=== PATIENT | female | born 1960 | race Caucasian/White ===

== ENCOUNTER → 2023-07-03 14:56 | Outpatient (REF) | payer BC, SELFPAY | LOC: CLAB 14:56 | PROVIDERS: ATTENDING PHYSICIAN Nurse Practitioner Family | DX: R87.810 Cervical high risk human papillomavirus (HPV) DNA test positive (principal) | CPT/HCPCS: 88305; 88342 ==

== ENCOUNTER 2023-09-12 06:09 | Day surgery (SDC) | payer BC, SELFPAY ==
[2023-09-01 06:44] VITALS: BMI 22.7
[2023-09-01 09:21] LABS: % Basophils 1.3 % (0-2); % Eosinophils 2.5 % (0-6); % Immature Granulocytes 0.2 % (0-0.5); % Lymphocytes 35.8 % (20.5-51.1); % Monocytes 11.8 % (1.7-9.3); % Neutrophils 48.4 % (42.2-75.2); Absolute Basophils 0.1 10^3/uL (0-0.2); Absolute Eosinophils 0.1 10^3/uL (0-0.7); Absolute Lymphocytes 1.9 10^3/uL (1.2-3.4); Absolute Monocytes 0.6 10^3/uL (0.1-0.6); Absolute Neutrophils 2.5 10^3/uL (1.4-6.5); Hemoglobin 13.6 g/dL (12.0-16.0); Mean Corp Hgb Conc. 34.9 g/dL (33.0-37.0); Mean Corpuscular Hgb 30.5 pg (27.0-31.0); Mean Corpuscular Volume 87.4 fL (81.0-99.0); Mean Platelet Volume 9.5 fL (7.4-10.4); Nucleated Red Blood Cells % 0 %; Platelet Count 295 10^3/uL (130-400); Red Blood Cell Count 4.46 10^6/uL (4.20-5.40); Red Cell Dist. Width 12.6 % (11.5-14.5); White Blood Cell Count 5.2 10^3/uL (4.8-10.8)
[2023-09-01 09:57] LABS: Blood Urea Nitrogen 9 mg/dl (7-17); Calcium 9.7 mg/dl (8.4-10.2); Carbon Dioxide 24 mmol/L (22-30); Chloride 102 mmol/L (98-107); Estimated Creatinine Clearance 74 ml/min; Glucose 84 mg/dl (70-99); Potassium 4.4 mmol/L (3.5-5.1); Sodium 134 mmol/L (135-145); eGFR > 60.00
[2023-09-12] VITALS (8 sets, daily range): BP systolic 117–164; BP diastolic 62–93; BMI 22.7
[2023-09-12] MEDS: NORMOSOL-R 1000 IV (08:06)
== END 2023-09-12 10:34 | disposition home or self-care (01) ==
LOC: SDS 06:09
PROVIDERS: ATTENDING PHYSICIAN Obstetrics & Gynecology; FAMILY PHYSICIAN Family Medicine
DX: D06.0 Carcinoma in situ of endocervix (principal)
CPT/HCPCS: 57522; 88305; 88307; 36415; 80048; 85025; 86850; 86900; 86901; 93005

== ENCOUNTER → 2023-12-10 07:03 | Outpatient (REF) | payer BC, SELFPAY ==
[2023-12-10 08:06] LABS: Hematocrit 37.2 % (37.0-47.0); Hemoglobin 12.9 g/dL (12.0-16.0); Mean Corp Hgb Conc. 34.7 g/dL (33.0-37.0); Mean Corpuscular Hgb 31.1 pg (27.0-31.0); Mean Corpuscular Volume 89.6 fL (81.0-99.0); Mean Platelet Volume 9.3 fL (7.4-10.4); Platelet Count 283 10^3/uL (130-400); Red Blood Cell Count 4.15 10^6/uL (4.20-5.40); Red Cell Dist. Width 12.7 % (11.5-14.5); White Blood Cell Count 4.8 10^3/uL (4.8-10.8)
[2023-12-10 08:38] LABS: ALT (SGPT) 26 U/L (0-35); AST (SGOT) 35 U/L (14-36); Albumin 4.7 g/dl (3.5-5.0); Alkaline Phosphatase 59 U/L (38-126); Blood Urea Nitrogen 7 mg/dl (7-17); Calcium 9.8 mg/dl (8.4-10.2); Carbon Dioxide 24 mmol/L (22-30); Chloride 98 mmol/L (98-107); Glucose 89 mg/dl (70-99); Potassium 4.4 mmol/L (3.5-5.1); Sodium 136 mmol/L (135-145); Total Bilirubin 0.5 mg/dl (0.2-1.3); Total Cholesterol 314 mg/dl (50-199); Total Protein 7.1 g/dl (6.3-8.2); Triglyceride 94 mg/dl (10-149); Very Low Density Lipoprotein 18 mg/dl (0-30); eGFR > 60.00
[2023-12-10 08:58] LABS: HDL Cholesterol 117 mg/dl; LDL Cholesterol, Calculated 179 mg/dl
[2023-12-10 10:28] LABS: TSH 0.68 uIU/ml (0.47-4.68)
== END ==
LOC: REG 07:03
PROVIDERS: ATTENDING PHYSICIAN Family Medicine
DX: Z00.01 Encounter for general adult medical examination with abnormal findings (principal); E78.2 Mixed hyperlipidemia
CPT/HCPCS: 36415; 80053; 80061; 84443; 85027

== ENCOUNTER → 2024-03-19 09:03 | Outpatient (REF) | payer BC, SELFPAY ==
[2024-03-31 05:49] LABS: HPV, High Risk Detected; HPV, High Risk Source Cervical
== END ==
LOC: CPAP 09:03
PROVIDERS: ATTENDING PHYSICIAN Obstetrics & Gynecology; FAMILY PHYSICIAN Family Medicine
DX: Z11.51 Encounter for screening for human papillomavirus (HPV) (principal)
CPT/HCPCS: 87624

== ENCOUNTER → 2024-05-03 15:45 | Outpatient (REF) | payer BC, SELFPAY | LOC: CPAP 15:45 | PROVIDERS: ATTENDING PHYSICIAN Obstetrics & Gynecology | DX: R87.619 Unspecified abnormal cytological findings in specimens from cervix uteri (principal) | CPT/HCPCS: 88305 ==

== ENCOUNTER → 2024-08-24 12:57 | Outpatient (REF) | payer BC, SELFPAY | LOC: WDC 12:57 | PROVIDERS: ATTENDING PHYSICIAN Obstetrics & Gynecology; FAMILY PHYSICIAN Family Medicine | DX: Z12.31 Encounter for screening mammogram for malignant neoplasm of breast (principal) | CPT/HCPCS: 77063; 77067 ==

== ENCOUNTER → 2024-09-28 13:27 | Outpatient (REF) | payer BC, SELFPAY | LOC: CLAB 13:27 | PROVIDERS: ATTENDING PHYSICIAN Obstetrics & Gynecology | DX: N90.89 Other specified noninflammatory disorders of vulva and perineum (principal) | CPT/HCPCS: 88305; 88341; 88342 ==

== ENCOUNTER → 2024-11-09 06:40 | Outpatient (REF) | payer BC, SELFPAY ==
[2024-11-09 09:38] LABS: Hematocrit 40.1 % (37.0-47.0); Hemoglobin 13.6 g/dL (12.0-16.0); Mean Corp Hgb Conc. 33.9 g/dL (33.0-37.0); Mean Corpuscular Volume 90.9 fL (81.0-99.0); Nucleated Red Blood Cells % 0 %; Platelet Count 320 10^3/uL (130-400); Red Cell Dist. Width 12.2 % (11.5-14.5)
[2024-11-09 09:39] LABS: APTT 25.3 Sec (23.4-35.0); INR 0.91; PT 12.6 Sec (11.4-14.6)
[2024-11-09 09:56] LABS: ALT (SGPT) 21 U/L (0-35); AST (SGOT) 32 U/L (14-36); Albumin 5.2 g/dl (3.5-5.0); Alkaline Phosphatase 64 U/L (38-126); Blood Urea Nitrogen 9 mg/dl (7-17); Calcium 10.1 mg/dl (8.4-10.2); Carbon Dioxide 25 mmol/L (22-30); Chloride 102 mmol/L (98-107); Glucose 93 mg/dl (70-99); LDH 189 U/L (120-246); Potassium 4.7 mmol/L (3.5-5.1); Sodium 135 mmol/L (135-145); Total Protein 8.0 g/dl (6.3-8.2); eGFR > 60.00
== END ==
LOC: REG 06:40
PROVIDERS: ATTENDING PHYSICIAN Obstetrics & Gynecology Gynecologic Oncology; FAMILY PHYSICIAN Family Medicine
DX: D07.1 Carcinoma in situ of vulva (principal); R87.810 Cervical high risk human papillomavirus (HPV) DNA test positive; D06.9 Carcinoma in situ of cervix, unspecified
CPT/HCPCS: 36415; 80053; 83615; 84443; 85025; 85610; 85730

== ENCOUNTER 2024-11-19 06:14 | Day surgery (SDC) | payer BC, SELFPAY ==
[2024-11-19] VITALS (9 sets, daily range): BP systolic 141–189; BP diastolic 67–93; BMI 22.7
[2024-11-19] MEDS: NORMOSOL-R/PLASMALYTE-A 1000 IV (11:50)
[2024-11-19] MEDS: CELEBREX 200 MG PO (11:58)
[2024-11-19] MEDS: NEURONTIN 300 MG PO (11:58)
[2024-11-19] MEDS: TYLENOL 1000 MG PO (11:58)
[2024-11-19] MEDS: HEPARIN 5000 UNITS SC (13:02)
--- NOTE | 2024-11-19 16:43 | OR.RPT ---
Operative Report
Operative Report
Date of procedure: November 19, 2024
Preoperative diagnosis: Vulvar intraepithelial neoplasia 3
Postoperative diagnosis: Same
Procedure: Partial simple vulvectomy posterior vulvar and perineal body
Surgeon:Rodrigo Porras MD
Assist: Jovan Serrano PA-C
Anesthesia: General Endotracheal intubation
Estimated blood loss 10 cc
Complications: None
Specimen: Posterior vulva (single-stranded suture mid labia minora, double-stranded suture anus margin at 12:00)
Procedure in detail: This patient was taken to the operating room for definitive management of vulvar high-grade dysplasia. She was placed in lithotomy position after induction of anesthesia and intubation and establishing appropriate IVs. She was
prepped after hairbearing area involving anterior posterior vulva was clipped. The patient was prepped with Betadine solution and eventually with chlorhexidine. She was draped. She received appropriate antibiotics Ancef 2 g. Patient timeout
procedure was completed. I went ahead and soaked the vulva with approximately 1 sponge that was soaked in 5% acetic acid for approximately 5 minutes then examined the entire vulva. There is a warty lesion with some satellite lesions involving
mainly posterior left labia and posterior fourchette and perineal body extending slightly to the right side. With this in mind I used a marking pen and outlined essentially 2 elliptical incisions on the right and left posterior vulva that came
together and encompassed a significant portion of the perineal body. I used electrocautery with needle tip to make the incision after the tissue was injected with 10 cc 1% lidocaine mixed with epinephrine. The entire specimen was removed there was
no injury to rectal sphincter or rectal wall. We tagged the specimen as described above with sutures. Next good hemostasis was present. I undermined the tissue under the posterior vaginal wall in order to allow mobilization. Following this a
series of interrupted horizontal mattress sutures was used to close the skin over the perineal body, and another series of interrupted horizontal mattress sutures were used to reapproximate the right posterior labia and now the vaginal canal and
again is another series of interrupted horizontal mattress sutures were used to reapproximate the left posterior labia and the vaginal canal. There was excellent reapproximation that was without any tension. The vaginal introitus still admitted 1
or 2 fingers without any significant narrowing. I performed a rectal examination and noted rectal sphincter is intact and there is no sutures or injury in the rectal canal. All instruments were handed back and we injected the entire incision with
10 cc quarter percent Marcaine. Following this Silvadene cream was applied to the vulvectomy incision. I placed a kerlix gauze against the perineum and place mesh panties to then the patient. Patient was awakened extubated and returned back to
recovery room stable awake and extubated condition. Counts of laps instruments and needle was correct x 2. I was present and scrubbed for entire procedure as dictated above.
Disposition: To PACU stable awake and extubated
== END 2024-11-19 16:45 | disposition home or self-care (01) ==
LOC: SDS 06:14
PROVIDERS: ATTENDING PHYSICIAN Obstetrics & Gynecology Gynecologic Oncology; FAMILY PHYSICIAN Family Medicine
DX: N90.3 Dysplasia of vulva, unspecified (principal)
CPT/HCPCS: 56620; 36415; 88309; 93005

== ENCOUNTER → 2024-12-14 09:47 | Outpatient (REF) | payer BC, SELFPAY ==
[2024-12-14 11:10] LABS: HDL Cholesterol 109 mg/dl; LDL Cholesterol, Calculated 152 mg/dl; Very Low Density Lipoprotein 36 mg/dl (0-30)
== END ==
LOC: REG 09:47
PROVIDERS: ATTENDING PHYSICIAN Physician Assistant Medical; FAMILY PHYSICIAN Family Medicine
DX: E78.2 Mixed hyperlipidemia (principal)
CPT/HCPCS: 36415; 80061; 84443